=== PATIENT | male | born 1960 | race Caucasian/White ===

== ENCOUNTER 2022-02-01 06:04 | Day surgery (SDC) | payer OTHER, SELFPAY ==
--- NOTE | 2022-01-29 14:09 | EKG12_ITS ---
Test Reason : PRE OP Blood Pressure : / mmHG Vent. Rate : 078 BPM Atrial Rate : 078 BPM P-R Int : 230 ms QRS Dur : 096 ms QT Int : 370 ms P-R-T Axes : 051 -04 039 degrees QTc Int : 421 ms Sinus rhythm with 1st degree A-V block Otherwise normal ECG Confirmed by SIVA VANEGAS, JENNIFER ([id number]), fan mail editor DANIEL DESAI ([id number]) on 02/01/2022 11:19:35 AM Referred By: Agus Styles Confirmed By:JENNIFER PANIAGUA MD
[2022-01-29 14:10] LABS: Hematocrit 44.4 % (40-54); Hemoglobin 14.9 g/dL (13.0-16.5); Mean Corp Hgb Conc 33.6 g/dL (32-36); Mean Corpuscular Hgb 29.6 pg (27.0-32.0); Mean Corpuscular Volume 88.3 fL (80-94); Mean Platelet Vol. 9.1 fl (6.2-12.0); Platelet Count 357 K/mm3 (150-450); RBC Distribution Width CV 12.8 % (11.6-14.6); RBC Distribution Width SD 40.9 fl (35.1-43.9); Red Blood Count 5.03 M/mm3 (4.6-6.2); White Blood Count 8.8 K/mm3 (4.4-11.0)
[2022-01-29 14:34] LABS: Anion Gap 1 (5-15); BUN 25 mg/dL (7-18); BUN/Creat Ratio 24.5 RATIO (10-20); Calcium,Total 9.2 mg/dL (8.5-10.1); Chloride 109 mmol/L (98-107); Creatinine, Serum 1.02 mg/dL (0.70-1.30); EST Glomerular Filtration Rate 79 mL/min (>60); Est Glom Filt Rate - Afr Amer 95 mL/min (>60); Glucose 77 mg/dL (74-106); Potassium 3.9 mmol/L (3.5-5.1); Sodium Level 141 mmol/L (136-145)
[2022-02-01] VITALS (8 sets, daily range): BP systolic 80–121; BP diastolic 65–85; PULSE 63–75; RESP 16–20; TEMP 36.1–36.4; O2SAT 97–100; BMI 36.1
[2022-02-01] MEDS: Lactated Ringers 1,000 ML 15 ML IV (06:44)
--- NOTE | 2022-02-01 09:28 | PCM.OPRPT ---
Report of Operation Date of Procedure: 02/01/22 Pre-Operative Diagnosis: CTS right Post-Operative Diagnosis: same Surgery/Procedure Performed:: RDTCL right Description of Surgical Findings:: Report of Operation Date of Procedure: 02/01/22 Preoperative Diagnosis: Right Carpal Tunnel Syndrome Postoperative Diagnosis: same Procedure Performed: Right Carpal Tunnel Release Anesthesia: Bere Espinal Anesthesiologist: Description of Procedure: With appropriate informed consent, the patient was taken to the operative suite. After the induction of [place] block, the right upper extremity was prepared and draped sterilely. Subsequently, a midline longitudinal incision was made in the base of the right palm, in line with the fourth ray with #15 blade scalpel. Hemostasis was perfected with bipolar electrocautery. Scissor dissection was carried down through the subcutaneous tissue to the palmar fascia. A self-retaining retractor was placed. In sequence, the chery fascia, then the deep transverse carpal ligament was divided with the scalpel under direct visualization. Thereafter, the most proximal and distal aspects of the deep transverse carpal ligament were divided with scissors under direct visualization. The wound was copiously irrigated and closed with interrupted sutures of 4-0 nylon. A sterile well-padded dressing and Charly wrap were applied. The tourniquet was released. Excellent blood flow was returned to the right upper extremity. The patient was transferred to the PACU in stable and satisfactory condition. Agus Styles DO Surgeon: tommy Type of Anesthesia: Bere Espinal Anesthesiologist: Alo Lynne Admernie VTE Documentation VTE Present on Admission: No VTE Pharm Prophylaxis ordered?: No Reason prophylaxis not ordered:: Treatment Not Indicated
== END 2022-02-01 23:59 | disposition home or self-care (01) ==
LOC: SDC 06:05 → AC 06:05
PROVIDERS: PCP Family Medicine; Referring Provider Orthopaedic Surgery; Visit Provider Orthopaedic Surgery
PROC: (CPT 64721; principal; 2022-02-01 07:15)
DX: G56.01 Carpal tunnel syndrome, right upper limb (principal); I10 Essential (primary) hypertension; E66.9 Obesity, unspecified; Z68.38 Body mass index [BMI] 38.0-38.9, adult; Z86.73 Personal history of transient ischemic attack (TIA), and cerebral infarction without residual deficits; Z79.899 Other long term (current) drug therapy; Z79.82 Long term (current) use of aspirin; M19.90 Unspecified osteoarthritis, unspecified site
CPT/HCPCS: 64721; 36415; 80048; 85027; 87426; 93005; C9803; J7120; J2405

== ENCOUNTER 2022-03-01 09:37 | Day surgery (SDC) | payer OTHER, SELFPAY ==
[2022-03-01] VITALS (7 sets, daily range): BP systolic 105–150; BP diastolic 79–101; PULSE 63–74; RESP 16; TEMP 36–36.8; O2SAT 94–98; BMI 36.4
[2022-03-01] MEDS: Lactated Ringers 1,000 ML 15 ML IV (10:36)
--- NOTE | 2022-03-01 11:46 | OP.PCM_ITS ---
Report of Operation Date of Procedure: 03/01/22 Pre-Operative Diagnosis: Left carpal tunnel syndrome and A-1 stenosing tenosyno vitis index finger Post-Operative Diagnosis: same Surgery/Procedure Performed:: Left CTR and release of trigger finger index Surgeon: Agsu Styles transcription manager: None Type of Anesthesia: BlockBere Anesthesiologist: Alo Lynne Admernie VTE Documentation VTE Present on Admission: No VTE Mechan Device Prophylaxis: SCD's VTE Pharm Prophylaxis ordered?: No Reason prophylaxis not ordered:: Treatment Not Indicated
== END 2022-03-01 23:59 | disposition home or self-care (01) ==
LOC: SDC 09:38 → AC 09:39
PROVIDERS: PCP Family Medicine; Referring Provider Orthopaedic Surgery; Visit Provider Orthopaedic Surgery
PROC: (CPT 64721; principal; 2022-03-01 11:10)
DX: G56.03 Carpal tunnel syndrome, bilateral upper limbs (principal); M65.322 Trigger finger, left index finger; E66.9 Obesity, unspecified; Z68.38 Body mass index [BMI] 38.0-38.9, adult; I10 Essential (primary) hypertension; Z79.899 Other long term (current) drug therapy; Z86.73 Personal history of transient ischemic attack (TIA), and cerebral infarction without residual deficits; Z79.82 Long term (current) use of aspirin
CPT/HCPCS: 64721; 26055; 01810; 87426; C9803; J7120; A4216; J2405

== ENCOUNTER 2022-09-17 05:58 | Day surgery (SDC) | payer OTHER, SELFPAY ==
--- NOTE | 2022-09-13 06:58 | EKG12_ITS ---
Test Reason : PRE OP Blood Pressure : / mmHG Vent. Rate : 060 BPM Atrial Rate : 060 BPM P-R Int : 246 ms QRS Dur : 098 ms QT Int : 400 ms P-R-T Axes : 051 -06 036 degrees QTc Int : 400 ms Sinus rhythm with 1st degree A-V block Otherwise normal ECG Confirmed by SIVA VANEGAS, JENNIFER ([id number]), clinical editor DANIEL DESAI ([id number]) on 09/13/2022 2:04:31 PM Referred By: Agus Styles Confirmed By:JENNIFER PANIAGUA MD
[2022-09-13 08:07] LABS: Hematocrit 42.2 % (40-54); Hemoglobin 13.9 g/dL (13.0-16.5); Mean Corp Hgb Conc 32.9 g/dL (32-36); Mean Corpuscular Hgb 29.3 pg (27.0-32.0); Mean Platelet Vol. 9.7 fl (6.2-12.0); Platelet Count 222 K/mm3 (150-450); RBC Distribution Width CV 13.1 % (11.6-14.6); RBC Distribution Width SD 42.8 fl (35.1-43.9); Red Blood Count 4.74 M/mm3 (4.6-6.2); White Blood Count 6.3 K/mm3 (4.4-11.0)
[2022-09-13 08:34] LABS: BUN 31 mg/dL (7-18); BUN/Creat Ratio 30.1 RATIO (10-20); Calcium,Total 8.9 mg/dL (8.5-10.1); Chloride 110 mmol/L (98-107); Creatinine, Serum 1.03 mg/dL (0.70-1.30); EST Glomerular Filtration Rate 78 mL/min (>60); Est Glom Filt Rate - Afr Amer 94 mL/min (>60); Glucose 90 mg/dL (74-106); Potassium 4.1 mmol/L (3.5-5.1); Sodium Level 141 mmol/L (136-145)
[2022-09-13 08:35] LABS: Anion Gap 5 (5-15)
[2022-09-17] VITALS (7 sets, daily range): BP systolic 119–135; BP diastolic 72–97; PULSE 64–84; RESP 16–18; TEMP 36.6–36.9; O2SAT 95–100; BMI 36.2
[2022-09-17] MEDS: Lactated Ringers 1,000 ML 15 ML IV (06:41)
[2022-09-17] MEDS: Cefazolin 1 GM/50 ML BAG IV (07:40)
[2022-09-17] MEDS: Lidocaine 2% /Epi 1:100 (20ml) 20 ML VIAL OPERA.SITE (07:53)
[2022-09-17] MEDS: Epinephrine (1 mg/ml) 1 MG/ML VIAL (07:53)
--- NOTE | 2022-09-17 08:24 | PCM.OPRPT ---
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
[2022-09-17] MEDS: 0.9% Normal Saline 1,000 ML 125 ML IV (08:55)
== END 2022-09-17 09:53 | disposition home or self-care (01) ==
LOC: SDC 05:58 → AC 05:58
PROVIDERS: PCP Family Medicine; Referring Provider Orthopaedic Surgery; Visit Provider Orthopaedic Surgery
PROC: (CPT 29870; principal; 2022-09-17 07:15)
DX: M23.91 Unspecified internal derangement of right knee (principal); M22.40 Chondromalacia patellae, unspecified knee; S83.231A Complex tear of medial meniscus, current injury, right knee, initial encounter; M17.11 Unilateral primary osteoarthritis, right knee; I10 Essential (primary) hypertension; E66.9 Obesity, unspecified; Z71.3 Dietary counseling and surveillance; Z68.38 Body mass index [BMI] 38.0-38.9, adult; Z86.73 Personal history of transient ischemic attack (TIA), and cerebral infarction without residual deficits; Z98.1 Arthrodesis status; Z79.82 Long term (current) use of aspirin
CPT/HCPCS: 29870; 01382; 36415; 80048; 85027; 93005; J7030; J7120; J2405